=== PATIENT | female | born 1985 ===

== ENCOUNTER 2016-12-14 08:26 | Emergency (ER) | payer SELFPAY ==
[2016-12-14 08:37] VITALS: BP 118/78; PULSE 90; RESP 18; TEMP 97.5; O2SAT 96
--- NOTE | 2016-12-14 10:19 | EDPHY ---
H & P Time Seen by Provider: 12/14/16 09:26 HPI/ROS: CHIEF COMPLAINT: Tick bite, rash HISTORY OF PRESENT ILLNESS: Patient is a 31-year-old female who presents to the emergency department with concern over a tick bite. She states that 1 week ago she thinks she found a tick. She removed this. 4 days ago she developed a rash. She has not small area of rash on her left arm, her left face, her right side and her chest. She states she found a 2nd tick on her right lower abdomen. This is in the middle of 1 of the rash locations. She denies fevers or chills. The rash is not pruritic. She has had no headache, neck pain, shortness of breath, nausea or vomiting. Patient states she has removed all the ticks. She does have a small scab on both her left lower and right lower abdomen. REVIEW OF SYSTEMS: My complete review of systems is negative except as mentioned in the HPI. Past Medical/Surgical History: Denies Past surgical history: Negative Smoking Status: Never smoked Physical Exam: Vitals noted. Afebrile. GENERAL: Well-appearing, in no acute distress, alert. HEENT: Eyes normal to inspection, normal pharynx, no signs of dehydration. NECK: No thyromegaly, no lymphadenopathy, supple. RESPIRATORY: Clear to auscultation bilaterally, no rales, rhonchi or wheezing. CVS: Regular rate and rhythm, no rubs, murmurs, or gallops. ABDOMEN: Soft, nontender, nondistended, no organomegaly. BACK: Normal to inspection, no CVA tenderness. SKIN: Normal color, warm, dry. No pallor. The patient has a small patchy area of dermatitis like rash on her left forearm. She has a similar rash on her chest and right lower abdomen. She also has a similar appearing rash on her left angle of the jaw. There are no target type lesions. No palpable mass or fluctuance. There is no significant warmth or erythema. EXTREMITIES: No pedal edema, no calf tenderness, no Homans sign or cords, no joint swelling. NEURO/PSYCH: Alert and oriented x3, normal mood and affect, normal motor sensory exam. No obvious cranial nerve deficit. Constitutional: Initial Vital Signs Temperature (C) 36.4 C 12/14/16 08:30 Heart Rate 90 12/14/16 08:30 Respiratory Rate 18 12/14/16 08:30 Blood Pressure 118/78 12/14/16 08:30 O2 Sat (%) 96 12/14/16 08:30 Allergies/Adverse Reactions: No Known Allergies Allergy (Unverified 12/14/16 08:34) Home Medications: Medication Instructions Recorded Doxycycline Hyclate 100 mg PO BID #20 tab 12/14/16 predniSONE 20 mg PO DAILY 5 Days 12/14/16 Medical Decision Making ED Course/Re-evaluation: In the emergency department I evaluated the patient. Her father was present. Patient was upset that she did waited for her exam. I informed her that there was either more critical patients in the emergency department. I thoroughly evaluated the locations of her rash numerous occasions while I was in the room. She was concerned that the tick was still on her body. There is no visible tick present. I discussed possible etiologies of her symptoms. The patient will be given prescription for doxycycline and prednisone. She was given follow-up instructions. She is aware she needs close follow-up with primary care physician to recheck her rash and tech sites. Differential Diagnosis: In the emergency department patient does have small scabs which could be take bite locations. I see no foreign body present. I do not palpate a mass. I doubt abscess or surrounding cellulitis. Rash has the appearance of dermatitis. This does not appear to be a typical Lyme disease pattern. I considered other tick-borne diseases. The patient will be given doxycycline to treat possible tick-borne infection. She will be given prednisone for her rash. Departure - Departure Disposition: Home, Routine, Self-Care Clinical Impression: Rash, Tick exposure Condition: Good Instructions: Tick Bite (ED), Acute Rash (ED) Additional Instructions: Take your entire course of antibiotics and prednisone. You need to be recheck by the primary care physician. Call to make an appointment. Return with increasing rash, fever, discharge, pain or any other concerns. Referrals: Souleymane Jenkins MD [Medical Doctor] - 5-7 days, call for appt. Prescriptions: Doxycycline Hyclate 100 mg PO BID #20 tab predniSONE 20 mg PO DAILY 5 Days
[2016-12-14] MEDS ORDERED: predniSONE 20 MG TAB PO ONE (10:24)
[2016-12-14] MEDS ORDERED: DOXYCYCLINE HYCLATE 100 MG CAP/TAB PO ONE (10:24)
== END 2016-12-14 11:00 | disposition home or self-care (01) ==
DX: R21 Rash and other nonspecific skin eruption (principal); W57.XXXA Bitten or stung by nonvenomous insect and other nonvenomous arthropods, initial encounter